=== PATIENT | female | born 1950 | race Caucasian/White ===

== ENCOUNTER → 2016-06-11 | Outpatient (CLI) | payer MEDICARE, OTHER ==
[~2016-06-11] MED LIST: ALLEGRA 180MG180 MG PO; LEVOTHYROXIN0.075 M1 PO; NASONEX0.05 MG/AC; PRILOSEC40 MG PO
[2016-06-11 10:46] LABS: BUN 11 mg/dL (7-18)
[2016-06-11 11:05] LABS: GFR (ESTIMATED) 72 ML/MIN (59-)
== END ==
LOC: LAB 08:46
PROVIDERS: Nurse Practitioner Family
DX: K21.9 Gastro-esophageal reflux disease without esophagitis (principal); E78.5 Hyperlipidemia, unspecified; E03.9 Hypothyroidism, unspecified

== ENCOUNTER → 2016-12-30 | Outpatient (CLI) | payer MEDICARE, OTHER ==
[~2016-12-30] MED LIST changes: +CYANOCOBAL1000 MCG/M PO; +FLONASE 50 MCG16 GM; +OMNICEF 300 MG300 MG PO; +PREDNISONE 20MG20 MG PO; +PROBIOTIC1 EAC5 PO
--- NOTE | 2016-12-30 12:02 | RADIOLOGY REPORT PS360 ---
US RUQ-(ABD LTD)1ORGAN/QUAD/FU COMPARISON: CT scan abdomen pelvis 09/12/2014 HISTORY: Right-sided abdominal pain for one week TECHNIQUE: Targeted ultrasound right upper quadrant FINDINGS: The pancreas appears grossly normal although portions of the tail is obscured by bowel gas. The liver is normal in size and liver parenchyma is normal. The gallbladder is normal in size and there is a large calcified gallstone in the body of the gallbladder prominent acoustic shadowing beneath. This is basely unchanged in size from the previous CT scan in 2014. The benson bile duct is normal caliber. Right kidney measures 9.3 x 4.8 x 5.9 cm there is mild uniform cortical thinning with is no hydronephrosis or other abnormality. IMPRESSION: Obvious cholelithiasis the gallstone measures approximately 2 cm in diameter
== END ==
LOC: RAD 08:23
DX: R10.11 Right upper quadrant pain (principal)

== ENCOUNTER → 2017-01-05 | Outpatient (CLI) | payer MEDICARE, OTHER ==
[2017-01-05 09:22] LABS: LYMPH # 1.4 K/mm3 (0.7-4.5); LYMPH % 17.7 % (10-50.0)
[2017-01-05 10:22] LABS: BUN 13 mg/dL (7-18)
[2017-01-05 10:23] LABS: GFR (ESTIMATED) 84 ML/MIN (59-)
[2017-01-06 09:38] LABS: Vitamin B12 552 pg/mL (211-946)
== END ==
LOC: LAB 08:47
PROVIDERS: Internal Medicine Adolescent Medicine
DX: E03.9 Hypothyroidism, unspecified (principal); R10.84 Generalized abdominal pain; E78.5 Hyperlipidemia, unspecified; J01.01 Acute recurrent maxillary sinusitis; J30.89 Other allergic rhinitis